=== PATIENT | female | born 1985 | race Caucasian/White ===

== ENCOUNTER 2017-04-26 19:56 | Emergency (ER) | payer BC ==
[~2017-04-26] VITALS: Ht 160 cm; Wt 93.2 kg
[~2017-04-26 19:56] MED LIST: MOTRIN800 MG PO; Motrin PO; PERCOCET 5/31 TABLET PO; PRENATAL TABLE1 EACH PO; Percocet 5/325,Endoc PO; TUMS500 MG PO; TYLENOL EXTRA500 MG PO; ~No Medications
[2017-04-26 20:56] LABS: HEMATOCRIT 38.7 % (36.0-46.0); MCH 28.9 PG (29.0-34.0); MCHC 33.3 G/DL (30.0-36.0); MCV 86.8 FL (83-99); MEAN PLAT.VOLUME 9.9 uM^3 (9.5-12.4); PLATELET COUNT 251 K/uL (156-360); RBC DIS.WIDTH-CV 12.5 % (11.8-14.6); RBC DIS.WIDTH-SD 39.8 % (39-53); RED BLOOD COUNT 4.46 M/uL (3.80-5.20); WHITE BLOOD COUNT 8.3 K/uL (4.1-10.2)
[2017-04-26] MEDS ORDERED: NAPROXEN500 MG PO (20:59)
[2017-04-26 21:08] LABS: CHLORIDE 107 mEq/L (99-109); POTASSIUM 3.7 mEq/L (3.7-5.4); SODIUM 141 mEq/L (136-147)
[2017-04-26 21:09] LABS: GLUCOSE 100 mg/dL (70-99)
[2017-04-26 21:11] LABS: ANION GAP 7 MEQ/L (2-14)
[2017-04-26 21:13] VITALS: BP 131/69
[2017-04-26 21:13] LABS: GFR ESTIMATE (CALCULATED) > 59 mL/min/
[2017-04-26 21:14] LABS: UREA NITROGEN (BUN) 10 mg/dL (9-23)
[2017-04-26 21:25] LABS: QUANTITATIVE HCG < 4.0 MIU/ML
== END 2017-04-26 21:14 | disposition home or self-care (01) ==
LOC: EME 19:56
PROVIDERS: Physician Assistant
DX: N94.6 Dysmenorrhea, unspecified (principal); E28.2 Polycystic ovarian syndrome
CPT/HCPCS: 80048; 84702; 85027; 99281; 99284

== ENCOUNTER → 2018-04-25 | Outpatient (CLI) | payer BC ==
[~2018-04-25] MED LIST changes: +ADDERALL20 MG PO; +CELEXA20 MG PO; +MULTIPLE VITAM1 EAC1 PO; +NAPROXEN500 MG PO
== END | disposition home or self-care (01) ==
LOC: CDC 14:12
DX: Z01.810 Encounter for preprocedural cardiovascular examination (principal); R94.31 Abnormal electrocardiogram [ECG] [EKG]
CPT/HCPCS: 93000

== ENCOUNTER 2018-04-30 07:55 | Day surgery (SDC) | payer BC ==
[~2018-04-30] VITALS: Ht 157.5 cm; Wt 83.9 kg
[2018-04-30 08:00] VITALS: BP 121/71
[2018-04-30] MEDS ORDERED: MOTRIN800 MG PO (09:54)
[2018-04-30 11:36] VITALS: BP 131/79
[2018-04-30 12:20] VITALS: BP 131/79
== END 2018-04-30 12:30 | disposition home or self-care (01) ==
LOC: SDC
DX: N92.1 Excessive and frequent menstruation with irregular cycle (principal); K21.9 Gastro-esophageal reflux disease without esophagitis
CPT/HCPCS: 87641; 88305; J0690; J1100; J1885; J2250; J2405; J3010